=== PATIENT | male | born 1970 | race Caucasian/White ===

== ENCOUNTER 2017-12-28 13:20 | Emergency (ER) | payer OTHER ==
[~2017-12-28] VITALS: Ht 182.9 cm; Wt 88.5 kg
[2017-12-28] MEDS ORDERED: EXCEDRIN CAPLE1 EACH PO (13:27)
[2017-12-28 15:05] LABS: ABSOLUTE LYMPHOCYTES 0.7 thou/uL (0.8-5.3); ABSOLUTE MONOCYTES 0.3 thou/uL (0.0-1.2); ABSOLUTE NEUTROPHILS 2.6 thou/uL (1.6-8.1); BASOPHILS 0.4 %; EOSINOPHILS 0.2 %; HEMATOCRIT 40.5 % (42.0-52.0); HEMOGLOBIN 13.8 gm/dL (14.0-18.0); LYMPHOCYTES 19.2 %; MCH 29.1 pg (26.0-34.0); MCHC 34.1 g/dL (28.0-37.0); MCV 85.5 fL (80.0-100.0); MPV 8.1 fl. (7.2-11.1); NUCLEATED RBCS 0 /100WBC; PLATELET COUNT* 210 thou/uL (150-400); POLYS 73.2 %; RBC 4.74 mil/uL (4.50-6.00); RDW-CV 13.3 % (10.5-14.5); WBC 3.6 thou/uL (4.0-11.0)
[2017-12-28 15:13] LABS: CREATININE 0.8 mg/dL (0.6-1.3); POTASSIUM 3.5 mmol/L (3.5-5.1)
[2017-12-28 15:20] LABS: ALBUMIN 3.8 g/dL (3.4-5.0); TOTAL BILIRUBIN 0.5 mg/dL (<0.1-1.0); TOTAL PROTEIN 7.3 g/dL (6.4-8.2)
[2017-12-28] MEDS ORDERED: PHENERGAN 25 MG25 M1 PO (16:02)
[2017-12-28] MEDS ORDERED: TRANSDERM-SCOP1 EACH TRANSDERM ×2 (16:02→16:07)
[2017-12-28] MEDS ORDERED: ANTIVERT25 MG PO (16:02)
[2017-12-28] MEDS ORDERED: ONDANSETRON HCL4 M2 PO (16:06)
[2017-12-28 16:43] VITALS: BP 131/75
== END 2017-12-28 16:48 | disposition home or self-care (01) ==
LOC: M.ERS 13:20
PROVIDERS: Family Medicine
DX: G43.909 Migraine, unspecified, not intractable, without status migrainosus (principal); H81.10 Benign paroxysmal vertigo, unspecified ear; R11.2 Nausea with vomiting, unspecified